=== PATIENT | male | born 1995 | race Hispanic/Latino ===

== ENCOUNTER 2017-02-11 19:22 | Emergency (ER) | payer MEDICAID, OTHER ==
[~2017-02-11] VITALS: Ht 190.5 cm; Wt 99.5 kg
[~2017-02-11 19:22] MED LIST: NOMED
[2017-02-11 19:37] VITALS: BP 132/89; PULSE 101; RESP 18; O2SAT 98
[2017-02-11 21:06] LABS: APPEARANCE,URINE CLEAR (CLEAR,HAZY); COLOR,URINE YELLOW (YELLOW); OCCULT BLOOD,URINE TRACE (NEGATIVE); PH,URINE 5.5 (5.0-8.0); UROBILINOGEN,URINE NORMAL (NORMAL)
--- NOTE | 2017-02-11 21:26 | ED.REPORT ---
HPI-General Illness Date of Service Feb 11, 2017 ED Provider: Sanjay Lizama MD A 21 year old male with a history of smoking presents to the ED complaining of a productive cough with green sputum. The pt has been experiencing this cough for two weeks, as well as fatigue, congestion, and low grade fever. He denies shortness of breath and vomiting. His symptoms have persisted despite staying hydrated and rested. Nursing Notes Stated Complaint: SICK FOR 2WKS Chief Complaint: Respiratory Complaints Nursing Notes Reviewed: Yes Allergies: Coded Allergies: No Known Allergies (Verified Allergy, Unknown, 02/11/17) Scheduled Azithromycin (Zithromax) 250 Mg Tablet 250 MG PO DAILY Guaifenesin (Guaifenesin) 1,200 Mg Tab.er.12h 1,200 MG PO BID Miscellaneous Medications No Historical Medication (No Historical Medication) Ea General Time Seen by MD: 21:26 Chief Complaint Cough Hx Obtained From: Patient Arrived By: Walk-in Symptom Duration: More than a week... Recent Healthcare: No recent doctor visit, No recent hospitalization Similar Sx Previous: No Past Medical History Past Medical History none reported Past Surgical History none reported Smoking History Light Tobacco Smoker Ambulatory Status Independent Review of Systems Full Review of Systems Constitutional: Reports: Fatigue, Fever Ears / Nose / Throat: Reports: Nasal congestion Respiratory: Reports: Prod cough, green GI: Denies: Vomiting Skin: Denies Rash Complete sys rev & neg: except as marked. Physical Exam Vital Signs Vital Signs Date Time Temp Pulse Resp B/P Pulse Ox O2 Delivery O2 Flow Rate FiO2 02/11/17 19:37 37.8 101 18 132/89 98 Room Air Initial VS: Reviewed General/Constitutional: Awake, Alert Head / Eyes: Atraumatic, Normocephalic, PERRL, EOMI ENT: Atraumatic, Airway patent, Mucous membranes moist, Pharynx NL Neck: Atraumatic, Supple, Full range of motion Respiratory / Chest: Atraumatic, Breath sounds NL, Breath sounds = bilat, No respiratory distress, No rales, No rhonchi, No wheezing Cardiovascular: Heart rate NL, Regular rhythm, Heart sounds NL Abdomen: Atraumatic, Soft, Non-tender Back: Atraumatic, Full range of motion Upper Extremities Upper Extremity / MS: Atraumatic, Full range of motion Lower Extremity / Pelvis / MS: Atraumatic, Full range of motion Skin: Atraumatic, Color NL, No rash, Warm, Dry Neurologic: Oriented X3, Speech NL, No motor deficits, No sensory deficits Psychiatric: Affect NL, Mood NL Interpretation & Diagnostics Lab Results Interpretation Test 02/11/17 20:50 Urine Color Yellow (YELLOW) Urine Appearance Clear (CLEAR,HAZY) Urine pH 5.5 (5.0-8.0) Urine Specific Ellis 1.020 (1.003-1.035) Urine Protein Negativemg/dL (NEG,TRACE) Urine Glucose (UA) Negativemg/dL (NEGATIVE) Urine Ketones Negativemg/dL (NEGATIVE) Urine Occult Blood Trace (NEGATIVE) Urine Nitrite Negative (NEGATIVE) Urine Bilirubin Negative (NEGATIVE) Urine Urobilinogen Normalmg/dL (NORMAL) Urine Leukocyte Esterase Negative (NEGATIVE) Urine RBC 0-2/hpf (0-2) Urine WBC 0-5/hpf (0-5) Urine Epithelial Cells Occasional/hpf (NONE-MOD) Urine Crystals None seen (NONE SEEN) Urine Bacteria None/hpf (NONE-FEW) Urine Hyaline Casts None/lpf (NONE) Urine Granular Casts None seen (NONE SEEN) Urine Waxy Casts None seen (NONE SEEN) Urine Red Blood Cell Casts None seen (NONE SEEN) Urine White Blood Cell Casts None seen (NONE SEEN) Urine Mucus None seen (None Seen) Urine Trichomonas None seen (NONE SEEN) Urine Yeast None (NONE SEEN) Urinalysis Comment None Urine Culture Reflexed Not indicated X-Ray Chest Interpretation Chest Xray Interpretation: IMPRESSION: No acute cardiopulmonary disease. Dictated by: Rozina Jin M.D. on 02/11/2017 at 21:51 Approved by: Rozina Jin M.D. on 02/11/2017 at 21:51 Interpretation / Wet Read by: Interpret - Radiologist Re-Eval/Medical Decision Med Decision/Clinical Course 21-year-old with 5-7 days of cough and mild sputum production and a small streaky infiltrate without shatter sign in the lower left. It was read officially as negative. He has no definitive findings on exam. Begun empirically with azithromycin for what appears to be low-grade community-acquired pneumonia. Discharged in stable condition. Source of Hx: Old records Time of Eval: 21:26 Patient Status: Condition improved Re-Evaluation/Progress Note: Pt informed of his radiology results, diagnosis, and the plan for discharge during the initial interview. The pt understands and agrees with the plan. All questions are addressed at this time. Counseled Regarding: Diagnosis, Lab results, Need for follow-up, When/why to return to ED Discharge & Departure Primary Impression: Acute bronchitis Additional Impression: Cough Disposition: Home Discharge Condition All VS Reviewed: Yes Condition: Stable Patient Instructions: Acute Bronchitis (ED), Community-acquired Pneumonia (ED) Additional Instructions: Begin azithromycin daily for four more days. You may use guaifenesin twice daily to help clear her secretions. Drink plenty of fluids and stay well-hydrated. Follow-up with your doctor in the office. You may follow-up at residency clinic if you need a local physician. Referrals: [facility] [place] Attestation Portions of this note were transcribed by Tona Foy. I, Dr. Lizama personally performed the history, physical exam and medical decision-making; I reviewed and confirmed the accuracy of the information in the transcribed note. Signed by: Crescencio Harris, 02/11/2017 and [id number]. copies to: [facility] Sanjay Lizama MD Feb 11, 2017 21:26 TONA FOY Feb 11, 2017 22:00
--- NOTE | 2017-02-11 21:54 | DRSVH ---
PROCEDURE: X-RAY CHEST ONE VIEW ([id number]) INDICATIONS: cough TECHNIQUE: One view of the chest was acquired. COMPARISON: None. FINDINGS: Surgical changes and devices: None. Lungs and pleura: No pleural effusions or pneumothorax. Lungs are clear. Mediastinum: Mediastinal contours appear normal. Heart size is normal. Bones and chest wall: No suspicious bony lesions. Overlying soft tissues appear unremarkable. IMPRESSION: No acute cardiopulmonary disease. Dictated by: Rozina Jin M.D. on 02/11/2017 at 21:51 Approved by: Rozina Jin M.D. on 02/11/2017 at 21:51
[2017-02-11] MEDS ORDERED: GUAI120016 PO (22:01)
[2017-02-11] MEDS ORDERED: ZIT250 PO (22:01)
== END 2017-02-11 22:10 | disposition home or self-care (01) ==
LOC: SED 19:22
DX: J20.9 Acute bronchitis, unspecified (principal); R53.83 Other fatigue; R50.9 Fever, unspecified; R09.81 Nasal congestion; F17.200 Nicotine dependence, unspecified, uncomplicated